=== PATIENT | female | born 1935 | race Caucasian/White ===

== ENCOUNTER 2017-06-26 13:06 | Outpatient (CLI) | payer MEDICARE, BC | END 2017-06-26 13:07 | disposition home or self-care (01) | LOC: BICMAMMO 13:06 | PROVIDERS: ATTEND Internal Medicine | DX: Z12.31 Encounter for screening mammogram for malignant neoplasm of breast (principal); Z80.3 Family history of malignant neoplasm of breast | CPT/HCPCS: 77063; 77067 ==

== ENCOUNTER 2018-06-28 12:41 | Outpatient (CLI) | payer MEDICARE, BC ==
--- NOTE | 2018-06-28 13:30 | BD ---
BONE DENSITOMETRY USING DEXA: Date: 06/28/18 HISTORY: Postmenopausal screening for osteoporosis. FINDINGS: Right Hip: Neck: 0.676 T-Score: -1.6 Z-Score: 0.9 Total: 0.925 T-Score: -0.1 Z-Score: 2.1 Left Hip: Neck: 0.589 T-Score: -2.3 Z-Score: 0.1 Total: 0.825 T-Score: -1.0 Z-Score: 1.2 The 10 year fracture risk for a major osteoporotic fracture is 16% and for a hip fracture is 5.4%. IMPRESSION: Osteopenia. POS: [facility]
--- NOTE | 2018-06-28 13:49 | MMO ---
Bilateral MAMMO Bilat Screen [facility]. CLINICAL HISTORY: Patient is 82 years old and is seen for screening. The patient has the following family history of breast cancer: mother, at age 70. The patient has no personal history of cancer. The patient has a history of left needle biopsy in 06/04/1995 - US GUIDED BIOPSY OF LEFT BREAST-BENIGN LYMPHOID TI. VIEWS: The views performed were: bilateral craniocaudal with tomosynthesis and bilateral mediolateral oblique with tomosynthesis. FILMS COMPARED: The present examination has been compared to prior imaging studies performed at [facility] on 02/06/2000, 02/05/2001, 02/11/2002, 02/13/2003, 02/15/2004, 02/17/2005, 02/18/2006, 04/09/2007, 04/10/2008, 04/18/2009, 04/23/2010, 06/18/2011, 06/20/2011, 06/18/2012, 06/20/2013, 06/23/2014, 06/25/2015, 06/25/2016 and 06/26/2017. MAMMOGRAM FINDINGS: There are scattered fibroglandular densities. There are benign appearing calcifications seen in both breasts. There are also vascular calcifications. There are no suspicious masses, suspicious calcifications, or new areas of architectural distortion. IMPRESSION: THERE IS NO MAMMOGRAPHIC EVIDENCE OF MALIGNANCY. A ROUTINE FOLLOW-UP MAMMOGRAM IN 1 YEAR IS RECOMMENDED. THE RESULTS OF THIS EXAM WERE SENT TO THE PATIENT. ACR BI-RADS Category 2 - Benign finding MAMMOGRAPHY NOTE: 1. A negative mammogram report should not delay a biopsy if a dominant of clinically suspicious mass is present. 2. Approximately 10% to 15% of breast cancers are not detected by mammography. 3. Adenosis and dense breasts may obscure an underlying neoplasm.
== END 2018-06-28 12:42 | disposition home or self-care (01) ==
LOC: BICMAMMO 12:41
PROVIDERS: ATTEND Internal Medicine
DX: Z12.31 Encounter for screening mammogram for malignant neoplasm of breast (principal); Z78.0 Asymptomatic menopausal state; M85.851 Other specified disorders of bone density and structure, right thigh; M85.852 Other specified disorders of bone density and structure, left thigh; Z80.3 Family history of malignant neoplasm of breast
CPT/HCPCS: 77063; 77067; 77080

== ENCOUNTER 2018-08-24 14:03 | Outpatient (CLI) | payer MEDICARE, BC ==
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
== END 2018-08-24 14:04 | disposition home or self-care (01) ==
LOC: BICRAD 14:03
PROVIDERS: ATTEND Internal Medicine
DX: M54.5 Low back pain (principal)
CPT/HCPCS: 72100